=== PATIENT | male | born 1930 | race Caucasian/White ===

== ENCOUNTER 2016-04-11 08:15 | Outpatient (RCR) | payer MEDICARE, BC ==
[~2016-04-11 08:15] MED LIST: ASPIRIN 32325 MG/TAB PO; ASPIRIN E.C. 8181 MG PO; CARDI-OMEGA1000 MG PO; CHLORTHALIDONE25 MG PO; CLOBETASOL PROP0.055 TP; CLOBETASOL0.05% TP; COQ1060 MG PO; COZAAR50 MG PO; DELTA D3400 IU PO; DILTIAZEM120 MG PO; DOXYCYCLINE 10100 MG PO; EPA FISH OIL1000 MG PO; HCTZ12.5TAB PO; LIPITOR40 MG PO; LISINOPRIL10 MG PO; LISINOPRIL2.5 MG PO; LOPRESSOR 225 MG/TAB PO; LOPRESSOR50 MG PO; MEGACE 40MG40 MG/TAB PO; METFORMIN500 MG PO; MILK OF MA400 MG/51 PO; MULTIPLE VITAMI1 CAP PO; NORCO 325 MG-7.1 TAB PO; NORVASC 5MG5 MG/TAB PO; PEPCID 20MG TAB20 MG PO; PERCOCET 325 MG1 TA2 PO; PLAVIX 75MG TAB75 MG; PLAVIX 75MG TAB75 MG PO; PRAVACHOL 20MG20 MG PO; SUPER EPA 1201200 MG PO; TYLENOL 325MG325 MG PO; VITAMIN D 400400 IU PO; VITAMIN D1000 IU PO; VITAMIN D5000 IU PO; ZESTRIL 5MG5 MG PO; [UNRECOGNIZED DRUG - OTHER] PO
== END 2016-04-13 08:08 | disposition home or self-care (01) ==
LOC: WSPT 08:15
DX: M62.81 Muscle weakness (generalized) (principal)
CPT/HCPCS: G8984-GP; G8985-GP; G8986-GP

== ENCOUNTER 2016-04-30 09:30 | Outpatient (RCR) | payer MEDICARE, BC | END 2016-05-14 11:39 | disposition home or self-care (01) | LOC: WSOT 09:30 | DX: M62.81 Muscle weakness (generalized) (principal) | CPT/HCPCS: G8987-GO; G8988-GO; G8989-GO ==

== ENCOUNTER 2017-05-20 11:33 | Emergency (ER) | payer MEDICARE, BC ==
[~2017-05-20] VITALS: Ht 172.7 cm; Wt 65.9 kg
[2017-05-20 11:36] VITALS: TEMP 98.9
[2017-05-20 14:10] VITALS: BP 121/71
[2017-05-20] MEDS ORDERED: PEPCID 20MG TAB20 MG PO (14:18)
[2017-05-20] MEDS ORDERED: PRAVACHOL80 MG PO (14:18)
[2017-05-20] MEDS ORDERED: LOPRESSOR 225 MG/TAB PO (14:19)
[2017-05-20 14:45] LABS: BASO % 0.3 % (0.0-2.0); EOS % 0.1 % (0-4.0); GRAN # 9.5 (1.4-6.5); GRAN % 83.7 % (42.2-75.2); HEMATOCRIT 38.9 % (42.0-52.0); HEMOGLOBIN 13.3 g/dl (13.5-18.0); LYMPH # 0.6 (1.2-3.4); LYMPH % 5.1 % (20.0-51.0); MEAN CELL VOLUME 99 fl (80.0-100.0); MEAN CORPUSCULAR HEMOGLOBIN 34 pg (27.0-31.0); MEAN CORPUSCULAR HGB CONC 34 g/dl (33.0-37.0); MEAN PLATELET VOLUME 10.3 fl (7.4-10.4); MONO # 1.2 (0.1-0.6); MONO % 10.5 % (1.7-9.3); PLATELET COUNT 137 K/mm3 (130-400); RED BLOOD COUNT 3.92 M/mm3 (4.20-5.60); REDCELL DISTRIBUTION WIDTH-CV 13.5 % (11.5-14.5)
[2017-05-20 14:50] LABS: INR 1.2 (0.8-3.0); PROTHROMBIN TIME 13.4 SECONDS (9.7-12.8)
[2017-05-20 14:59] LABS: ALANINE AMINOTRANSFERASE 29 U/L (21-72); ALBUMIN 4.3 gm/dL (3.5-5.0); ALKALINE PHOSPHATASE 91 U/L (50-136); ANION GAP 18 mmol/L (7-16); AST,SGOT 26 U/L (15-37); BILIRUBIN,TOTAL 0.7 mg/dL (0.0-1.0); BLOOD UREA NITROGEN 20 mg/dL (9-20); CALCIUM 9.2 mg/dL (8.4-10.2); CARBON DIOXIDE 24 mmol/L (22-30); CHLORIDE 94 mmol/L (98-107); CREATININE, serum 1.28 mg/dL (0.66-1.25); GLUCOSE 152 mg/dL (74-106); POTASSIUM 3.9 mmol/L (3.4-5.0); SODIUM 135 mmol/L (137-145); TOTAL PROTEIN 7.6 gm/dL (6.4-8.2)
[2017-05-20] MEDS ORDERED: PLAVIX 75MG TAB75 MG PO (15:01)
[2017-05-20] MEDS ORDERED: COLACE 100100 MG/CAP PO (15:01)
[2017-05-20] MEDS ORDERED: EPA FISH OIL1 SGL PO (15:01)
[2017-05-20] MEDS ORDERED: ASPIRIN E.C. 8181 MG PO (15:01)
[2017-05-20] MEDS ORDERED: THE MEDICINE S200 M2 PO (15:02)
[2017-05-20] MEDS ORDERED: VITAMIN D 1001000 IU PO (15:03)
[2017-05-20] MEDS ORDERED: BREO IH (15:03)
[2017-05-20] MEDS ORDERED: [UNRECOGNIZED DRUG - OTHER] (15:04)
[2017-05-20 15:19] LABS: TROPONIN-I < 0.012 ng/mL (0.000-0.034)
[2017-05-20 16:34] LABS: COLLECTION METHOD CLEAN CATCH
[2017-05-20 16:41] LABS: PH 6 (5-8); SQUAMOUS EPITHELIAL None Seen /hpf; URINE APPEARANCE Clear; URINE BACTERIA None Seen /hpf; URINE BILIRUBIN Negative (NEGATIVE); URINE BLOOD 1+ (NEGATIVE); URINE COLOR Straw; URINE GLUCOSE Negative (NEGATIVE); URINE KETONE Negative (NEGATIVE); URINE LEUKOCYTE ESTERASE Negative (NEGATIVE); URINE NITRATE Negative (NEGATIVE); URINE PROTEIN(semi-quant) Negative (NEGATIVE); URINE UROBILINOGEN Negative (NEGATIVE)
[2017-05-20 17:10] VITALS: PULSE 97
== END 2017-05-20 17:22 | disposition home or self-care (01) ==
LOC: COL.ER 11:33
PROVIDERS: Emergency Medicine
DX: K21.9 Gastro-esophageal reflux disease without esophagitis (principal); I10 Essential (primary) hypertension; E78.5 Hyperlipidemia, unspecified; Z85.118 Personal history of other malignant neoplasm of bronchus and lung; Z95.1 Presence of aortocoronary bypass graft; Z90.79 Acquired absence of other genital organ(s); Z90.2 Acquired absence of lung [part of]; Z79.82 Long term (current) use of aspirin; Z79.01 Long term (current) use of anticoagulants; Z79.51 Long term (current) use of inhaled steroids; Z87.891 Personal history of nicotine dependence
CPT/HCPCS: J7030; Q9967

== ENCOUNTER 2019-12-28 10:24 | Inpatient (IN) | payer MEDICARE, BC ==
[2019-12-28] VITALS (155 sets, daily range): BP systolic 105–170; BP diastolic 41–99; PULSE 70–100; TEMP 68.1–98.3; O2SAT 83–100
[~2019-12-28] VITALS: Ht 172.7 cm; Wt 61.7 kg
[~2019-12-28 10:24] MED LIST changes: +BREO IH; +COLACE 100100 MG/CAP PO; +EPA FISH OIL1 SGL PO; +PRAVACHOL80 MG PO; +THE MEDICINE S200 M2 PO; +VITAMIN D 1001000 IU PO; +[UNRECOGNIZED DRUG - OTHER]
[2019-12-28 10:47] LABS: BASO % 0.5 % (0.0-2.0); EOS # 0.2 (0.0-0.7); EOS % 2.7 % (0-4.0); GRAN % 62.4 % (42.2-75.2); HEMATOCRIT 32.9 % (42.0-52.0); HEMOGLOBIN 10.2 g/dl (13.5-18.0); LYMPH # 1.7 (1.2-3.4); MEAN CELL VOLUME 89 fl (80.0-100.0); MEAN CORPUSCULAR HEMOGLOBIN 28 pg (27.0-31.0); MEAN CORPUSCULAR HGB CONC 31 g/dl (33.0-37.0); MEAN PLATELET VOLUME 10.1 fl (7.4-10.4); MONO # 1.1 (0.1-0.6); MONO % 13.3 % (1.7-9.3); PLATELET COUNT 198 K/mm3 (130-400); RED BLOOD COUNT 3.68 M/mm3 (4.20-5.60); REDCELL DISTRIBUTION WIDTH-CV 14.1 % (11.5-14.5)
[2019-12-28 10:51] LABS: INR 1.1 (0.8-3.0)
[2019-12-28 10:59] LABS: ALBUMIN 4.7 gm/dL (3.5-5.0); BILIRUBIN,TOTAL 0.6 mg/dL (0.0-1.0); CALCIUM 9.4 mg/dL (8.4-10.2); CREATININE, serum 1.27 (0.66-1.25); POTASSIUM 3.7 mmol/L (3.4-5.0); TOTAL PROTEIN 7.8 gm/dL (6.4-8.2)
[2019-12-28 11:10] LABS: PARTIAL THROMBOPLASTIN TIME 32.1 SECONDS (26.0-37.0)
[2019-12-28 11:11] LABS: TROPONIN-I 0.014 ng/mL (0.000-0.035)
--- NOTE | 2019-12-28 14:48 | NUR ---
SEE MEREBRYSON FOR ALL MEDICATION ADMINISTRATION TIMES, INTRA AND POST SEDATION ASSESSMENTS
--- NOTE | 2019-12-28 16:48 | NUR ---
RECEIVED REPORT FROM PEPE BAUTISTA IN TEACHING PASTOR. AWAITING ARRIVAL OF PT TO ICU 1.
--- NOTE | 2019-12-28 16:58 | NUR ---
PT ARRIVES TO ICU 1 PLACED ON BEDSIDE CONTINUOUS MONITOR. PT EDUCATED THAT HE STILL NEEDS TO LAY FLAT AT THIS TIME R/T SHEATH IN RT FEMORAL STILL IN PLACE AND TO NOT PUT PRESSURE ON LT WRIST AT THIS TIME R/T TR BAND IN PLACE, VERBALIZED UNDERSTANDING. NOTED 19ML IN TR BAND PER REPORT TO LT WRIST. URINAL PLACED TO ALLOW PT TO ATTEMPT TO VOID, SUCCESSFUL OF 250ML. CALL LIGHT WITHIN REACH. PEPE BAUTISTA FROM ACADEMIC INTERN AT BEDSIDE MONTIROIGN SHEATH AND ACT. PASSENGER SERVICE REPRESENTATIVE STATES ONCE PT'S SHEATH IS OUT AND IS STABLE CAN TRANSFER TO 307. PT MADE AWARE, VERBALIZED UNDERSTANDING. VSS. PT DENIES ANY CP OR SHOB AT THIS TIME. PT STATES "I FEEL GREAT."
--- NOTE | 2019-12-28 17:21 | NUR ---
ACT obtained and results 175. Will pull when ACT is [address] Anna.
--- NOTE | 2019-12-28 17:55 | NUR ---
ACT 171 at this time. Arterial sheath remains in place. Will recheck.
--- NOTE | 2019-12-28 18:21 | NUR ---
NOTED ORDER FOR COVID REQUEST AND RVP. RVP OBTAINED. LAB NOTIFIED. MORTGAGE PROFESSIONAL STATES THAT BECAUSE PT IS NO LONGER SYMPTOMATIC THAT THE COVID TEST WOULD NEED TO BE A SEND OUT AND TO CONTACT BLANCA RODRIGUEZ TO DISCUSS ABOUT POC AND IF REALLY SUSPECTING COVID. BLANCA RODRIGUEZ CALLED AND DISCUSSED SITUATION ABOUT LAB SWABS, PT'S CURRENT VS, AND PT DENYING ANY CP/SHOB SINCE ADMIT TO ICU AND PT STATES "I FEEL GREAT." NO S/S OF SHOB OR DISTRESS NOTED. BLANCA RODRIGUEZ STATES TO WAIT FOR RVP RESULTS AND IF NEGATIVE CAN DC COVID TEST AND PRECAUTIONS THAT PT DOES NOT SEEM SYMTPOMATIC AT THIS TIME. PEPE BAUTISTA FROM ARMHOLE BASTER JUMPBASTING AWARE OF SITUATION.
--- NOTE | 2019-12-28 19:10 | NUR ---
CARE TAKEN OVER BY RN FROM PEPE BAUTISTA IN BILINGUAL CALL CENTER REPRESENTATIVE AFTER SHEATH DCd. NO HEMATOMA OR PAIN NOTED TO RT RENAN SITE. 4X4 AND OCCLUSIVE DRESSING IN PLACE, NO BLEEDING NOTED AT THIS TIME. LT RADIAL SITE TR BAND, 3ML TAKEN OUT AT THIS TIME. NO BLEEDING NOTED. PT EDUCATED ON REMAINING FLAT TIME FOR THE NEXT 4-6 HOURS AND HOW WE WILL DO REVERSE TRENDELENBURG TO HELP HIM EAT SUPPER, VERBALIZED UNDERSTANDING.
--- NOTE | 2019-12-28 19:12 | NUR ---
ACT 154. Right femoral arterial line pulled at 1845 and manual pressure to site for 20 minutes. Hemostasis obtained and site is soft, non tender. Dry gauze dressing applied and covered with tegaderm dressing. Distal pulses +2, no hematoma. Pt instructed to keep head down and right left strait. Report to PEPE Prieto and site visualized.
--- NOTE | 2019-12-28 19:55 | NUR ---
PATIENT IS EATING, DENIES DISCOMFORT REVERSE SRAVANTHI,
--- NOTE | 2019-12-28 20:43 | NUR ---
PATIENT RESTING COMFORTABLE ON COT, GROIN BANDAGE CLEAN DRY, SECUREED WITH OCCULSIVE DRESSING, 9CC REMOVED FROM TR BAND LEFT WRIST, 3MLS REMOVED EVERY 30 MINUTES
--- NOTE | 2019-12-28 20:55 | NUR ---
REPORT CALLED TO ANNY CANTU AND TRANSPORTED TO ROOM 307
--- NOTE | 2019-12-28 21:10 | NUR ---
Removed 3 ml of air from his pressure band, makes total of 15 ml of air out, no changes in redness and no bleeding. Will keep monitoring the site untill next air removal. Post op vitals are recorded.
--- NOTE | 2019-12-28 21:20 | NUR ---
REMOVED ANOTHER 3 MLS FROM TR BAND TOTAL OF 12 MLS REMOVED NO DRAINAGE OR HEMATOMA FOUND. GROIN BANDAGE CLEAN AND DRY
--- NOTE | 2019-12-28 21:45 | NUR ---
Pt received from Alan ROTARY CUTTER. Pt denies N/V/D, tingling, numbness, pain at his time. Meds provided as per APR, tolerated well. Pt had diminished heart and lung sound, no edema and open wound over the body. Rt radial arm has a pressure band and has slight hematoma on the site. According to ROTARY CUTTER, Alan, total of 12 ml air has been removed. Rt groin procedure site looks CD&I, no edema. IV site is CD&I working without complications. Educated pt to lie flat until 0200, urinal on bedside. Pt is settled on his bed, call light is on reach, no further needs at this time, will keep monitoring.
--- NOTE | 2019-12-28 22:00 | NUR ---
Removed another 3 ml of fluid from the TR band and has no change on site, no bleeding, Will keep monitoring.
--- NOTE | 2019-12-28 22:35 | NUR ---
Removed another 3 ml of air from TR band, no chnage on procedure site, no bleeding. No further needs at this time, will keep monitoring.
--- NOTE | 2019-12-28 23:05 | NUR ---
Removed remaining air and left the band on place for few minutes to make sure it will not bleed, will check after few minutes and take out the band.
--- NOTE | 2019-12-28 23:14 | NUR ---
REMOVED THE TR BAND AND PLACED A BAND AID ON THE PROCEDURE SITE. RT GROIN PROCEDURE SITE LOOKS CD&I. PT IS SLEEPING, NO FURTHER NEEDS AT THIS TIME.
--- NOTE | 2019-12-29 00:14 | NUR ---
Pt received from Alan HELMINTHOLOGY TEACHER. Pt denies N/V/D, tingling, numbness, pain at this time. Meds provided as per APR, tolerated well. Pt had diminished heart and lung sound, no edema and open wound over the body. Rt radial arm has a pressure band and has slight bruise over the site. Rt groin procedure site looks CD&I, no edema. I/V site is CD&I working without complications. Educated pt to lie flat at least till 2 am, urinal on the bed side. Pt is settled on his bed, call light is on reach. No further needs at this time.
--- NOTE | 2019-12-29 01:52 | NUR ---
Remaining pressure removed and site looks bruised and red, applied bandage over the site, pt is sleeping, no further needs at this time.
[2019-12-29 03:30] VITALS: BP 106/54; PULSE 68; TEMP 98.3
--- NOTE | 2019-12-29 05:50 | NUR ---
Pt had an uneventful night, pt slept through out the night. No further needs at this time.
--- NOTE | 2019-12-29 07:30 | NUR ---
Pt alert resting in bed, assessment complete. Telemetry on, Pt denies chest pain and shortness of breath. R groin sheath site CDI CMS CKS to BLE, L wrist site CDI CMS CKS l wrist wnl. R forearm INT intact scant sangeous drainage noted to insertion site. Pt independent in his room, voices no acute concerns.
[2019-12-29 07:43] VITALS: BP 102/64; PULSE 82; TEMP 98.2
--- NOTE | 2019-12-29 09:08 | NUR ---
JOSE met with the patient to discuss discharge plan. The patient lives alone in [place] with his dog. He states that his son, Dennis (ph#[phone]), also lives in [place]. He reports independence with ADLs and does not have any DME. The patient's PCP is Dr. Quinn Caputo and he receives his medications at [facility]. He reports no difficulties obtaining his meds. The patient's DPOA-HC is in EMR. It designates his late and the alternate is his son, Dennis. The patient plans to return home upon discharge. JOSE discussed home health services and their benefits. The patient states that he is not interested in home health at this time. He states that he would only be interested in home health, if he were to get worse. JOSE then contacted and reviewed the above information with the patient's son, Dennis. Dennis states that he does not have any concerns about the patient returning home. He states that the patient does have some short term memory loss and that he would like to be here when the doctor combat systems operator goes over any new medications changes, limitations. JOSE to notify the patient's RN. JOSE to continue to follow as needed.
--- NOTE | 2019-12-29 09:57 | NUR ---
Initial visit; Patient thanked Candy Starch Mold Printer for looking in on him and offering God's blessings.
--- NOTE | 2019-12-29 10:49 | NUR ---
Pt assessment completed and charted. Medications administered per apr. Pt is A&O, independent in room, on room air, breathing is even and unlabored, pt on tele, LS cta, BS active X4, pulses strong bilaterally. Pt has RAC INT IV, drainage, no flushing well, hopefullly pt to DC today, otherwise will look into new IV site. Pt has rt groin site, gauze and tegaderm, CDI, no hematoma, soft to touch. Lt radial site, covered w/ bandaid, pulse strong, site CDI. Pt denies CP, dizziness, SOB, N/V/D, numbness or tingling, cough, general pain. Pt to have ECHO, then seen by hospitalist. Hopefully to DC this afternoon.
[2019-12-29] MEDS ORDERED: RANEXA 500MG T500 MG PO (11:16)
[2019-12-29] MEDS ORDERED: NITROSTAT0.4 MG/TAB SL (11:16)
[2019-12-29] MEDS ORDERED: PLAVIX 75MG TAB75 MG PO (11:16)
[2019-12-29] MEDS ORDERED: PEPCID 20MG TAB20 MG PO (11:17)
[2019-12-29 11:55] VITALS: BP 133/73; PULSE 77; TEMP 98.4
--- NOTE | 2019-12-29 12:35 | NUR ---
Pt discharge instructions discussed w/ patient and his son Dennis, all questions answered, they verbalized understanding. cheesemaking laborer discharge instructions discussed, verbalized understanding. LAC INT IV dc'd w/ cath tip intact and no issues. Pt escorted out via WC to ER entrance. No further needs.
== END 2019-12-29 12:36 | disposition home or self-care (01) | DRG 287 ==
LOC: COL.ER 10:24 → MEDICAL 13:13
PROVIDERS: Family Medicine; ADMIT Internal Medicine
PROC: 4A023N7 Measurement of Cardiac Sampling and Pressure, Left Heart, Percutaneous Approach (ICD-10-PCS; principal; 2019-12-28)
PROC: B2111ZZ Fluoroscopy of Multiple Coronary Arteries using Low Osmolar Contrast (ICD-10-PCS; 2019-12-28)
PROC: B2131ZZ Fluoroscopy of Multiple Coronary Artery Bypass Grafts using Low Osmolar Contrast (ICD-10-PCS; 2019-12-28)
DX: I25.110 Atherosclerotic heart disease of native coronary artery with unstable angina pectoris (principal); C34.90 Malignant neoplasm of unspecified part of unspecified bronchus or lung; D64.9 Anemia, unspecified; I10 Essential (primary) hypertension; I73.9 Peripheral vascular disease, unspecified; E78.5 Hyperlipidemia, unspecified; Z85.46 Personal history of malignant neoplasm of prostate; Z95.0 Presence of cardiac pacemaker; Z87.891 Personal history of nicotine dependence
CPT/HCPCS: 99223-AI; 99239; J1644; J2250; J3010

== ENCOUNTER 2020-02-04 10:25 | Observation (INO) | payer MEDICARE, BC ==
[~2020-02-04] VITALS: Ht 172.7 cm; Wt 51.9 kg
[~2020-02-04 10:25] MED LIST changes: +NITROSTAT0.4 MG/TAB SL; +RANEXA 500MG T500 MG PO
[2020-02-04 11:24] LABS: BASO # 0.1 (0.0-0.2); BASO % 0.5 % (0.0-2.0); EOS # 0.3 (0.0-0.7); EOS % 2.8 % (0-4.0); GRAN # 8.1 (1.4-6.5); GRAN % 81.6 % (42.2-75.2); LYMPH # 0.6 (1.2-3.4); MEAN CELL VOLUME 91 fl (80.0-100.0); MEAN CORPUSCULAR HGB CONC 30 g/dl (33.0-37.0); MEAN PLATELET VOLUME 9.8 fl (7.4-10.4); MONO # 0.9 (0.1-0.6); MONO % 8.6 % (1.7-9.3); PLATELET COUNT 280 K/mm3 (130-400); RED BLOOD COUNT 3.43 M/mm3 (4.20-5.60); REDCELL DISTRIBUTION WIDTH-CV 20.4 % (11.5-14.5)
[2020-02-04 11:34] LABS: ALBUMIN 3.9 gm/dL (3.5-5.0); BILIRUBIN,TOTAL 0.6 mg/dL (0.0-1.0); C-REACTIVE PROTEIN 1.4 mg/dL (0.0-0.9); CALCIUM 9.3 mg/dL (8.4-10.2); CREATININE, serum 1.53 (0.66-1.25); HEMATOCRIT 31.2 % (42.0-52.0); HEMOGLOBIN 9.5 g/dl (13.5-18.0); MEAN CORPUSCULAR HEMOGLOBIN 28 pg (27.0-31.0); POTASSIUM 4.2 mmol/L (3.4-5.0); TOTAL PROTEIN 7.6 gm/dL (6.4-8.2)
[2020-02-04 11:47] LABS: TROPONIN-I 0.066 ng/mL (0.000-0.035)
[2020-02-04 12:04] LABS: INR 1.2 (0.8-3.0); PROTHROMBIN TIME 13.2 SECONDS (9.7-12.8)
[2020-02-04] MEDS ORDERED: BREO ELLIPTA 21 EACH IH (13:17)
[2020-02-04] MEDS ORDERED: MEGACE 40MG40 MG/TAB PO (13:18)
[2020-02-04] MEDS ORDERED: NITRO-DUR0.3 MG/PAT TD (13:18)
--- NOTE | 2020-02-04 15:32 | NUR ---
Spoke with nurse at [facility] and med rec done at this time. They will also fax COVID test results as soon as they are able to.
[2020-02-04 15:46] VITALS: BP 132/73; PULSE 88; TEMP 98.5
--- NOTE | 2020-02-04 15:50 | NUR ---
Patient to room from ER via stretcher. Moves self from stretcher to bed. Denies pain at this time. When he has pain he says that it is in his chest, arms, and legs. Some bruising noted to right lower chest, patient not sure where it came from. Says that he had a bowel movement this morning and was excited about that because it was several days before he had one. Oriented to room. Water and soup provided.
[2020-02-04 15:54] LABS: COLLECTION METHOD CLEAN CATCH
[2020-02-04 16:00] LABS: BUDDING YEAST Present /hpf; MUCOUS Present /lpf; PH 6 (5-8); SQUAMOUS EPITHELIAL 0-2 /hpf; URINE APPEARANCE Cloudy; URINE BACTERIA Rare /hpf; URINE BILIRUBIN Negative (NEGATIVE); URINE BLOOD Negative (NEGATIVE); URINE COLOR Amber; URINE GLUCOSE Negative (NEGATIVE); URINE KETONE Trace (NEGATIVE); URINE LEUKOCYTE ESTERASE 1+ (NEGATIVE); URINE NITRATE Negative (NEGATIVE); URINE PROTEIN(semi-quant) 1+ (NEGATIVE); URINE RBC 20-50 /hpf; URINE UROBILINOGEN Negative (NEGATIVE)
--- NOTE | 2020-02-04 16:06 | NUR ---
Review consent for cardiac cath with the patient. Denies questions and signs consent. Will place in chart.
--- NOTE | 2020-02-04 18:04 | NUR ---
Dr. Steel notified of elevated troponin level. No new orders received at this time.
[2020-02-04 20:47] VITALS: BP 94/54; PULSE 88; TEMP 98.1
[2020-02-04 23:25] LABS: HEMATOCRIT 24.8 % (42.0-52.0); HEMOGLOBIN 7.9 g/dl (13.5-18.0); MEAN CELL VOLUME 88 fl (80.0-100.0); MEAN CORPUSCULAR HEMOGLOBIN 28 pg (27.0-31.0); MEAN CORPUSCULAR HGB CONC 32 g/dl (33.0-37.0); MEAN PLATELET VOLUME 9.6 fl (7.4-10.4); PLATELET COUNT 233 K/mm3 (130-400); RED BLOOD COUNT 2.82 M/mm3 (4.20-5.60); REDCELL DISTRIBUTION WIDTH-CV 20.2 % (11.5-14.5)
[2020-02-04 23:32] LABS: INR 1.2 (0.8-3.0); PROTHROMBIN TIME 13.1 SECONDS (9.7-12.8)
[2020-02-04 23:34] LABS: PARTIAL THROMBOPLASTIN TIME 48.2 SECONDS (26.0-37.0)
[2020-02-04 23:35] LABS: CALCIUM 8.8 mg/dL (8.4-10.2); CREATININE, serum 1.42 (0.66-1.25); POTASSIUM 4.2 mmol/L (3.4-5.0)
[2020-02-04 23:36] VITALS: BP 98/63; PULSE 95; TEMP 97.8
--- NOTE | 2020-02-05 01:45 | NUR ---
Patient pleasant, alert and oriented. Patient denies chest pain, SOB or dyspnea while at rest. Patient reported that he gets short of air and dyspnea upon movement or ambulating. Casillas catheter draining clear yellow urine. Heparing drip runningat 8.0 ml/hr via IV. IV to right AC area has no s/s of complications. Scheduled medications given per APR. Reviewed MD order for NPO starting midnight. Patient verbalized understanding. Call light within reach. Patient denies any needs at this time.
[2020-02-05 04:09] VITALS: BP 110/63; PULSE 84; TEMP 98.4
[2020-02-05 04:23] LABS: BASO # 0.1 (0.0-0.2); BASO % 0.6 % (0.0-2.0); EOS # 0.4 (0.0-0.7); EOS % 4.3 % (0-4.0); GRAN # 5.9 (1.4-6.5); GRAN % 69.7 % (42.2-75.2); LYMPH # 1.3 (1.2-3.4); LYMPH % 14.9 % (20.0-51.0); MEAN CELL VOLUME 91 fl (80.0-100.0); MEAN CORPUSCULAR HGB CONC 31 g/dl (33.0-37.0); MEAN PLATELET VOLUME 9.6 fl (7.4-10.4); MONO # 0.9 (0.1-0.6); MONO % 10.3 % (1.7-9.3); PLATELET COUNT 229 K/mm3 (130-400); RED BLOOD COUNT 2.96 M/mm3 (4.20-5.60); REDCELL DISTRIBUTION WIDTH-CV 20.4 % (11.5-14.5)
[2020-02-05 04:33] LABS: CALCIUM 8.8 mg/dL (8.4-10.2); CREATININE, serum 1.34 (0.66-1.25); POTASSIUM 4.1 mmol/L (3.4-5.0)
[2020-02-05 04:59] LABS: TROPONIN-I 0.075 ng/mL (0.000-0.035)
[2020-02-05 05:01] LABS: HEMATOCRIT 26.8 % (42.0-52.0); HEMOGLOBIN 8.2 g/dl (13.5-18.0); MEAN CORPUSCULAR HEMOGLOBIN 28 pg (27.0-31.0)
--- NOTE | 2020-02-05 06:04 | NUR ---
Patient slept well throughout the night. No c/o pain, discomfort, or SOB while at rest. NPO maintained from midnight for heart cath procedure today. Call light within reach. patient denies any need at this time.
--- NOTE | 2020-02-05 06:13 | NUR ---
Around 2100, patient's HepXa result was 0.16. Noted that patient's Heparin drip order was D/C'd in the computer on transfer from ER to medical floor. Spoke to Dr. Steel who said that the order should have been continued and to renew order. Patient was running at 6.5 ml/hr, and it was never stopped. Per protocol, increased Heparin drip by 1.5 ml/hr, new rate was 8 ml/hr. HepXa recheck scheduled for 0300. At 0500, result of 0.26 received, which is goal. No change in Heparin drip. Recheck HepXa at 1100.
--- NOTE | 2020-02-05 06:45 | NUR ---
bedside shift report received from PEPE Roldan
[2020-02-05 07:35] VITALS: BP 123/67; PULSE 87; TEMP 97.7
--- NOTE | 2020-02-05 08:30 | NUR ---
in bed and appears to be sleeping, resp quiet and easy
--- NOTE | 2020-02-05 09:20 | NUR ---
awakened and full assessment completed, see interventions for futher info, Dr Leon was in to see patient, patient denies pain or needs
--- NOTE | 2020-02-05 10:41 | NUR ---
JOSE met with the patient to discharge plan. The patient has been residing at [facility] in [facility] for a skilled stay. He could not recall how long he has been there. He states that he hopes to go back to [facility] upon discharge. The patient's PCP is Dr. Quinn Caputo and his DPOA-HC is in [facility], which designates his late and his son, Dennis (ph#[phone]). JOSE contacted the patient's son, Dennis, to discuss discharge. Dennis reports that the patient has been at [facility] around 3 1/2 weeks now. He states that [facility] informed him that the patient has a few more days at [facility] and then he has been talking to them about the patient transferring to another household there. Dennis reports that the plan is for the patient to return back to [facility] upon discharge. JOSE contacted and faxed updates to Nuvia at [facility]. Awaiting reponse on if [facility] can take the patient back.
--- NOTE | 2020-02-05 11:00 | NUR ---
Dr Keenan and care team in to see jean-claude
[2020-02-05 11:38] VITALS: BP 104/53; PULSE 84; TEMP 98.3
--- NOTE | 2020-02-05 12:00 | NUR ---
in bed and appears to be dozing, no grimacing or moaning or moving about in bed
--- NOTE | 2020-02-05 13:05 | NUR ---
Nuvia, at [facility], reports that they can accept the patient back and that they would require another COVID PCR test before taking back. JOSE notified the PA. A COVID test was ordered. Awaiting results. SW to continue to follow.
--- NOTE | 2020-02-05 13:38 | NUR ---
Dr Alvarez in to see patient, heart cath has been cancelled fo today, will continue on heparin drip, will provided AHA diet
--- NOTE | 2020-02-05 14:04 | NUR ---
dietitian in to visit with patient
--- NOTE | 2020-02-05 14:15 | NUR ---
had something to eat and tolerated well, denies needs at this time
--- NOTE | 2020-02-05 15:00 | NUR ---
physical therapy in to work with patient, assisted up and ambulated and into bathroom and voied
[2020-02-05 16:11] VITALS: BP 105/51; PULSE 98; TEMP 98.7
--- NOTE | 2020-02-05 17:35 | NUR ---
sitting up in bed eating chicken noodle soup are requested
--- NOTE | 2020-02-05 19:00 | NUR ---
Dr villalpando called to say he entered orders on the wrong patient and the transfer orders on this patinet were incorrect
--- NOTE | 2020-02-05 19:00 | NUR ---
shift report given to PEPE Senior and Yuli CANTU
[2020-02-05 19:39] VITALS: BP 111/44; PULSE 102; TEMP 98.1
--- NOTE | 2020-02-05 22:54 | NUR ---
Patient pleasant, alert and oriented. Patient was laying in bed and watching TV upon enter the room. Patient denies any pain or discomfort. Denies chest pain, SOB or dyspnea while at rest. Assisted patient to sit up on the edge of bed to take medications. Schedule medications given at this time per order. Patient took medications without difficulty. Patient start to have SOB for minimal movement. Encouraged patient to lay in bed and relax. HOB elevated 45 degree. Patient states breathing is easier while resting in bed. Casillas catheter emptied out at this time. Dark tea color urine out of 100ml. Casillas care provided. Call light within reach. Patient denies any need at this time.
[2020-02-05 23:58] VITALS: BP 110/58; PULSE 81; TEMP 98
[2020-02-06 04:11] VITALS: BP 109/62; PULSE 83; TEMP 97.6
--- NOTE | 2020-02-06 05:40 | NUR ---
Patient pulled off Tele strip in the middle of night due to itchiness to his skin. Tele strip re-applied after a while. No more itchiness reported. No c/o pain or discomfort throughout the shift. Call light within reach.
[2020-02-06 06:01] LABS: MEAN CELL VOLUME 91 fl (80.0-100.0); MEAN CORPUSCULAR HGB CONC 30 g/dl (33.0-37.0); MEAN PLATELET VOLUME 9.7 fl (7.4-10.4); PLATELET COUNT 253 K/mm3 (130-400); RED BLOOD COUNT 3.24 M/mm3 (4.20-5.60); REDCELL DISTRIBUTION WIDTH-CV 20.5 % (11.5-14.5)
[2020-02-06 06:03] LABS: HEMATOCRIT 29.4 % (42.0-52.0); HEMOGLOBIN 8.9 g/dl (13.5-18.0); MEAN CORPUSCULAR HEMOGLOBIN 27 pg (27.0-31.0)
[2020-02-06 06:08] LABS: CALCIUM 8.9 mg/dL (8.4-10.2); CREATININE, serum 1.28 (0.66-1.25)
[2020-02-06 07:36] VITALS: BP 113/58; PULSE 81; TEMP 97.6
--- NOTE | 2020-02-06 08:30 | NUR ---
Patient resting in bed, easily awakened with verbal command. A&Ox4. VSS. IV CDI, heparin infusing. Denies pain and discomfort. Is hoping to go home. Nursing staff encouraging patient to increase PO intake. Patient verbalized an understanding. No further needs expressed from the patient. Call light within reach. Bed alarm on
[2020-02-06 11:31] VITALS: BP 126/62; PULSE 90; TEMP 97.4
--- NOTE | 2020-02-06 15:34 | NUR ---
SW informed by charge nurse that patient would not be DCing home on this day 02/06/20 per physician. SW will continue to follow
[2020-02-06 16:37] VITALS: BP 104/60; PULSE 100; TEMP 97.4
--- NOTE | 2020-02-06 17:29 | NUR ---
Patient spent the day resting in bed most of the shift. Patient wanted to take a shower, nursing staff assisted the patient with 1 assist to the bathroom where the patient had to sit down and stated that his chest hurt and that he needed to go back to bed. Patient ambulated with 1 assist back to bed and repositioned for comfort. Patient worked with PT and tolerated well. Patient has been resting in bed after trying to take a shower. A&Ox3. VSS. IV CDI, fluids infusing. Nursing staff encouraging patient to increase PO intake. No further needs expressed from the patient. Call light within reach. Bed alarm on
[2020-02-06 19:13] VITALS: BP 99/51; PULSE 94; TEMP 98.4
--- NOTE | 2020-02-06 20:00 | NUR ---
SEE HEP XA RESULT. NO CHANGE IN DOSING. CHECK LAB IN 6HRS. PT RESTING IN BED. VERY PLEASANT AND COPPERATIVE. DENIES ANY PAIN. SEE COMPLETED ASSESSMENT.
[2020-02-06 23:17] VITALS: BP 104/55; PULSE 86; TEMP 98.4
[2020-02-07 03:19] VITALS: BP 92/47; PULSE 86; TEMP 98.2
--- NOTE | 2020-02-07 06:36 | NUR ---
LAB HERE FOR HEPXA LEVEL. HILL DRAINING SMALL AMTS OF PALE CREAM MUCOUS URINE RETURN. REVIEWED UAC. WILL REPORT TO DAYSHIFT.
[2020-02-07 07:12] LABS: CALCIUM 8.6 mg/dL (8.4-10.2); CREATININE, serum 1.19 (0.66-1.25)
[2020-02-07 07:14] LABS: BASO % 0.5 % (0.0-2.0); EOS # 0.4 (0.0-0.7); EOS % 4.4 % (0-4.0); GRAN # 5.5 (1.4-6.5); GRAN % 65.5 % (42.2-75.2); LYMPH # 1.4 (1.2-3.4); LYMPH % 17.3 % (20.0-51.0); MEAN CELL VOLUME 88 fl (80.0-100.0); MEAN CORPUSCULAR HGB CONC 32 g/dl (33.0-37.0); MEAN PLATELET VOLUME 9.8 fl (7.4-10.4); MONO % 11.9 % (1.7-9.3); PLATELET COUNT 233 K/mm3 (130-400); RED BLOOD COUNT 2.88 M/mm3 (4.20-5.60); REDCELL DISTRIBUTION WIDTH-CV 20.4 % (11.5-14.5)
[2020-02-07 07:15] LABS: HEMATOCRIT 25.4 % (42.0-52.0); HEMOGLOBIN 8.2 g/dl (13.5-18.0); MEAN CORPUSCULAR HEMOGLOBIN 28 pg (27.0-31.0)
[2020-02-07 08:03] VITALS: BP 94/49; PULSE 91; TEMP 98.1
[2020-02-07 11:20] VITALS: BP 102/56; PULSE 100; TEMP 97.6
[2020-02-07 16:12] VITALS: BP 102/44; PULSE 82; TEMP 98.2
--- NOTE | 2020-02-07 17:19 | NUR ---
Pt assessment completed and charted. Medications administered per apr. Pt alert, partially oriented. Pt denies dizziness, chest pain, N/V/D. Pt worked w/ therapy this morning, stated he was doing better than yesterday and ambulating better. Pt stated chest pain had improved from yesterday. Pt on hep gtt, running at 7ml/hr this morning, increased to 9.5ml/hr after hep xa result of 0.13, received bolus of 1000 as well. Next hep xa resulted at 0.40, decreased rate to 8.5 ml/hr. 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 Pt stated he was having some discomfort w/ the siegel as well. This nurse attempted to irrigate siegel, unsuccessful. New order to change out siegel. Difficulty removing siegel, had to deflate/inflate balloon multiple times, there was debris around catheter when pulled out. New 18F siegel inserted, draining cloudy jonny urine. Pt has RAC IV, redressed, was leaking some this morning. No further needs at this time. Call light within reach.
--- NOTE | 2020-02-07 19:00 | NUR ---
REPORT RCVD FROM PEPE SIDDIQI. PT RESTING IN BED AT THIS TIME. DENIES ANY NEEDS AT THIS TIME. ASSESSMENT COMPLETED. HEPARIN DRIP STILL RUNNING AT 8.5. NO FURTHER CONCERS. CALL LIGHT WITHIN REACH.
[2020-02-07 21:04] VITALS: BP 90/54; PULSE 90; TEMP 98.8
--- NOTE | 2020-02-07 23:15 | NUR ---
report received from PEPE Fontanez
[2020-02-08] VITALS (14 sets, daily range): BP systolic 88–1311; BP diastolic 46–65; PULSE 71–93; TEMP 97.4–99.1
--- NOTE | 2020-02-08 00:15 | NUR ---
in bed and appears to be sleeping, eyes closed, resp quiet and easy, Heparin infusing at 8.5ml/hr
--- NOTE | 2020-02-08 02:15 | NUR ---
entered room and he has removed his gown and telemetry, stated he was getting everything together, is alert and oriented to self and place, gown and telemetry back on and reminded him he needs to leave these on and not to touch his IV site, verbalizes understanding but unsure if he will leave all alone, heart rate strong and regular, lungs CTA, abdomen soft and non distended, bowel sounds present in 4 quads, peripheral pulses present in 4 extremities, heparin infusing in right antecubital at 8.5ml/hr, siegel cath pateitn draining yellow cloudy urine in tubing, lights off and encouraged to go back to sleep
--- NOTE | 2020-02-08 03:00 | NUR ---
remains in bed and appears to be sleeping
--- NOTE | 2020-02-08 05:20 | NUR ---
appears to be sleeping, resp quiet and easy
[2020-02-08 06:42] LABS: MEAN CELL VOLUME 89 fl (80.0-100.0); MEAN CORPUSCULAR HGB CONC 31 g/dl (33.0-37.0); MEAN PLATELET VOLUME 9.8 fl (7.4-10.4); PLATELET COUNT 224 K/mm3 (130-400); RED BLOOD COUNT 2.99 M/mm3 (4.20-5.60); REDCELL DISTRIBUTION WIDTH-CV 20.4 % (11.5-14.5)
[2020-02-08 06:46] LABS: CALCIUM 8.7 mg/dL (8.4-10.2); CREATININE, serum 1.18 (0.66-1.25); HEMATOCRIT 26.6 % (42.0-52.0); HEMOGLOBIN 8.2 g/dl (13.5-18.0); MEAN CORPUSCULAR HEMOGLOBIN 27 pg (27.0-31.0); POTASSIUM 4.5 mmol/L (3.4-5.0)
--- NOTE | 2020-02-08 06:49 | NUR ---
bedside shift report given to PEPE Chavira
--- NOTE | 2020-02-08 08:59 | NUR ---
Pt assessment completed and charted, pt laying in bed, resting. Hept gtt to RAC running at 8.5ml/hr, w/o issue. Pt on room air, denies dizziness, chest pain, SOA at this time. Casillas to dd, draining cloudy jonny urine. Pt NPO for heart cath procedure this morning. Consent signed and on chart. No further needs expressed at this time.
--- NOTE | 2020-02-08 10:22 | NUR ---
Pt down for heart cath procedure at this time.
--- NOTE | 2020-02-08 10:24 | NUR ---
SEE MERGE FOR ALL MEDICATION ADMINISTRATION TIMES, INTRA AND POST SEDATION ASSESSMENTS
--- NOTE | 2020-02-08 12:06 | NUR ---
Pt back from heart cath procedure at this time, flat time/bedrest started. pt verbalized understanding. Pt has Lt groin site, covered w/ gauze and tegaderm, soft to touch, CDI. Manual compression was held after procedure per RN from cardiac cath technician, no seal. Pulses strong bilaterally, VSS. Pt denies pain at this time. Will continue to monitor.
--- NOTE | 2020-02-08 12:46 | NUR ---
The patient is to have a heart [facility] today[facility] within [facility]. It's been 72 hours since the patient's last test. JOSE notified the hospitalist. JOSE to fax updates to [facility] and will continue to follow.
--- NOTE | 2020-02-08 14:44 | NUR ---
Pt laying in bed, has been sleeping since arriving back from general laborer. VSS. Lt groin site, CDI, soft touch, no hematoma noted. Pulses palpable bilaterally. Pt still on bedrest.
--- NOTE | 2020-02-08 16:58 | NUR ---
Pt laying in bed, sleepy since heart cath today. VSS, Lt groin site, CDI. No hematoma noted, soft to touch, pt denies pain. This nurse talked to pt son again regarding heart cath procedure, given same update. Son would like call from regarding what was done in procedure and "why no interventions were done".
--- NOTE | 2020-02-08 17:59 | NUR ---
Pt sitting in bed, just finished dinner, requesting cup of coffee, new pot started.
--- NOTE | 2020-02-08 20:50 | NUR ---
Resting in bed. Assessment complete. Lungs clear. Heart sounds normal. Bowels active x4. Pulses present throughout. No edema noted. INT right AC leaking. Started by house supervisior in left forearm. Denies pain. siegel to dependent drainage. Left femoral site CDI-no hematoma present. Denies needs. Call light in reach.
[2020-02-09] VITALS (8 sets, daily range): BP systolic 103–140; BP diastolic 51–85; PULSE 78–96; TEMP 97.5–98.7
--- NOTE | 2020-02-09 00:11 | NUR ---
Resting in bed. Left femoral site CDI. No hematoma. Denies needs. Call light in reach.
--- NOTE | 2020-02-09 04:36 | NUR ---
Resting in bed. Denies needs. Call eva blake.
--- NOTE | 2020-02-09 06:19 | NUR ---
Patient had uneventful night. Left femoral site remains CDI. Denies needs this Am. Call light in reach.
--- NOTE | 2020-02-09 07:03 | NUR ---
Report given to PEPE Webb
--- NOTE | 2020-02-09 07:04 | NUR ---
Report given to PEPE Maravilla
--- NOTE | 2020-02-09 10:13 | NUR ---
The patient is to tentatively d/c today, 02/08, back to [facility], pending his COVID results. JOSE notified and faxed updates to Nuvia at [facility]. JOSE contacted and updated the patient's son, Dennis.
--- NOTE | 2020-02-09 15:01 | NUR ---
Pt assessment completed and charted. Medications administered per apr. Pt laying in bed, on room air, breathing even and unlabored. Pt denies chest pain, dizziness, N/V/D, SOB. Pt has LFA IV that flushes well. Casillas to dd draining jonny urine, appears clearer than yesterday, improved over two days. Pt denies needs at this time. Covid PCR came back positive late this morning, around 1130, pt placed on droplet/contact precautions. SW working w/ marilyn to see if pt can still DC today, pt cleared by cardio and hospitalist team.
--- NOTE | 2020-02-09 15:53 | NUR ---
The patient's COVID results came back positive. JOSE notified and faxed the results to Nuvia at [facility]. Nuvia reports that they are able to take the patient back, but would not be able to provide transportation for him until tomorrow. JOSE contacted and updated the patient's son, Dennis. eDnnis is still agreeable with the patient returning back to [facility]. JOSE to continue to follow.
--- NOTE | 2020-02-09 15:58 | NUR ---
Pt unable to discharge today to [facility], will possibly DC tomorrow. Pt moved to room 319 for isolation precautions.
--- NOTE | 2020-02-09 18:10 | NUR ---
Spoke with Dennis, pt son, updated on POC. All questions answered, no further needs.
[2020-02-10 04:00] VITALS: BP 101/54; PULSE 76; TEMP 98
--- NOTE | 2020-02-10 06:32 | NUR ---
PT HAD UNEVENTFUL NIGHT. PT DID NOT GET MUCH SLEEP. BUT REMAINED STABLE THROUGHOUT THE NIGHT. NO FURTHER CONCERNS. WILL REPORT TO DAY NURSE.
[2020-02-10] MEDS ORDERED: RANEXA1000 MG PO (08:00)
[2020-02-10] MEDS ORDERED: TOPROL XL 25MG25 MG PO (08:01)
[2020-02-10 08:09] VITALS: BP 128/66; PULSE 76; TEMP 98.5
[2020-02-10] MEDS ORDERED: OMNICEF 300MG300 MG PO (09:41)
--- NOTE | 2020-02-10 10:08 | NUR ---
Nuvia, at [facility], reports that they can take the patient back today. JOSE notified the clinical team. The patient is to discharge today, 02/09, back to [facility] for a skilled stay. Transportation was scheduled at 1130, via [facility]. JOSE informed the patient's RN and the patient's son, Dennis, over the phone. They were both agreeable to the time. No additional needs at this time.
--- NOTE | 2020-02-10 10:33 | NUR ---
PT RESTING IN BED AT BEDSIDE SHIFT REPORT. PT DENIED PAIN AT TIME OF ASSESS BUT STATED HE WAS HAVING CHEST PAIN WHILE UP WITH THERAPY. REPORTS FEELING CONSTIPATED SO COLACE AND MIRALAX GIVEN THIS AM. PT'S BP'S WERE UP THIS AM SO NITROGLYCERIN GIVEN. STAT LOCK CHANGED FOR CHRONIC HILL BECAUSE IT WAS NOT ATTACHED. URINE DRAINAGE LOOKS CLEAR AND YELLOW. PT DID REPORT PAIN WHILE FLUSHING IV THIS AM. PT IS DISCHARGING BACK TO [facility] AT 1130. WILL REMOVE IV.
--- NOTE | 2020-02-10 10:46 | NUR ---
Chaplain romero for patient, outside patient's door
--- NOTE | 2020-02-10 12:44 | NUR ---
THIS NURSE ASSISTED GETTING PT READY FOR TRANSFER BACK TO [facility]. IV IN LEFT FORARME DISCONTINUED AND TELE MONITOR REMOVED. PT DRESSED AND TOILETED.
[2020-02-14] MEDS ORDERED: DECADRON6 MG PO (17:57)
== END 2020-02-10 12:00 | disposition home or self-care (01) ==
LOC: COL.ER 10:25 → MEDICAL 12:26 → EDBEDREQ 14:35 → MEDICAL 18:43
PROVIDERS: Family Medicine; Internal Medicine; Internal Medicine Interventional Cardiology; Nurse Practitioner; Physician Assistant; Student in an Organized Health Care Education/Training Program; ADMIT Hospitalist
DX: R07.89 Other chest pain (principal); R06.09 Other forms of dyspnea; I25.110 Atherosclerotic heart disease of native coronary artery with unstable angina pectoris; R62.51 Failure to thrive (child); N39.0 Urinary tract infection, site not specified; E87.1 Hypo-osmolality and hyponatremia; D64.9 Anemia, unspecified; N18.30 Chronic kidney disease, stage 3 unspecified; I73.9 Peripheral vascular disease, unspecified; I95.9 Hypotension, unspecified; E78.5 Hyperlipidemia, unspecified; C34.90 Malignant neoplasm of unspecified part of unspecified bronchus or lung; K21.9 Gastro-esophageal reflux disease without esophagitis; E43 Unspecified severe protein-calorie malnutrition; R63.4 Abnormal weight loss; I08.3 Combined rheumatic disorders of mitral, aortic and tricuspid valves; Z20.828 Contact with and (suspected) exposure to other viral communicable diseases; Z85.46 Personal history of malignant neoplasm of prostate; Z90.79 Acquired absence of other genital organ(s); Z88.8 Allergy status to other drugs, medicaments and biological substances
CPT/HCPCS: OP; 99232-AI; G0378; J0696; J1644; J1650; J3010; J7030; Q9967

== ENCOUNTER 2020-02-16 16:27 | Observation (INO) | payer MEDICARE, BC ==
[~2020-02-16] VITALS: Ht 172.7 cm; Wt 57.5 kg
[2020-02-16] VITALS (57 sets, daily range): BP systolic 15–151; BP diastolic 66–94; PULSE 76–85; TEMP 97.2–97.6; O2SAT 67–100
[~2020-02-16 16:27] MED LIST changes: +BREO ELLIPTA 21 EACH IH; +DECADRON6 MG PO; +NITRO-DUR0.3 MG/PAT TD; +OMNICEF 300MG300 MG PO; +RANEXA1000 MG PO; +TOPROL XL 25MG25 MG PO
[2020-02-16] MEDS ORDERED: LOVENOX 3030 MG/0.3 SQ (17:54)
[2020-02-16] MEDS ORDERED: GENTLE LAXATIVE10 MG RC (18:03)
[2020-02-16] MEDS ORDERED: TYLENOL SU650 MG/SUP RC (18:17)
[2020-02-16] MEDS ORDERED: ANTI-DIARRHEAL2 MG PO (18:19)
[2020-02-16] MEDS ORDERED: GOOD NEIGH1200 MG/15 (18:20)
[2020-02-16] MEDS ORDERED: ALUM-MAG HYDROX30 ML PO (18:23)
[2020-02-16] MEDS ORDERED: DEBROX OT (18:24)
--- NOTE | 2020-02-16 19:22 | NUR ---
PT ARRIVED FROM [facility]. ASSESSMENT COMPELTED. PT CURRENTLY STABLE. THERE ARE NO CONCERNS AT THIS TIME. REPORT GIVEN TO PEPE FERRER.
--- NOTE | 2020-02-16 19:35 | NUR ---
Received report from Estefany. Report given that patient doesn't have an IV yet. Prepared an IV materials and his night medicines when Nereyda DAVIS called saying the patient was found on the floor and had an unwitnessed fall. Nadeen CANTU already went inside to patient's room. Upon arrival on his room, patient had a bleeding on his right elbow. Small skin tear was noted. Gait belt placed and we put patient back to bed. Vital signs taken, his SPO2 was at 80's since his nasal cannula was pulled out when he fell. Put patient on O2 at 3lpm via NC and his SPO2 went up to 96%. Patient was wearing yellow gown but bed alarm was not on. Asked patient if he knows his name and birthday and he was able to answer them but he doesn't know where he was right now. Tried to insert an IV but failed. Nadeen CANTU tried to insert an IV as well but failed. Will call senior data warehouse architect to try to insert an IV.
--- NOTE | 2020-02-16 20:05 | NUR ---
Sol DAVID was at the nurses's station. Informed her that the patient just had an unwitnessed fall and he had a skin tear on his right elbow. We are not sure if he hit his head. Sol put an order to have a Head CT scan and ABG.
--- NOTE | 2020-02-16 20:34 | NUR ---
Night medicines given to patient. Crushed pills and mixed it with apple sauce. [facility]visor in circuit testing went in to try IV insertion but she cannot find a vein. Will try to insert an IV with G24.
[2020-02-16 20:54] LABS: COLLECTION METHOD IN
[2020-02-16 21:00] LABS: BUDDING YEAST Present /hpf; MUCOUS Present /lpf; PH 5 (5-8); SQUAMOUS EPITHELIAL 0-2 /hpf; URINE APPEARANCE Cloudy; URINE BACTERIA Rare /hpf; URINE BILIRUBIN Negative (NEGATIVE); URINE BLOOD Negative (NEGATIVE); URINE CALCIUM OXALATE CRYSTAL Present /hpf; URINE COLOR Amber; URINE GLUCOSE Negative (NEGATIVE); URINE KETONE Trace (NEGATIVE); URINE LEUKOCYTE ESTERASE 3+ (NEGATIVE); URINE NITRATE Negative (NEGATIVE); URINE PROTEIN(semi-quant) 2+ (NEGATIVE); URINE RBC 20-50 /hpf; URINE UROBILINOGEN Negative (NEGATIVE)
--- NOTE | 2020-02-16 21:10 | NUR ---
Called back patient's son Dennis to update him regarding patient's condition. Informed him that patient just had a fall incident and had a skin tear on his elbow. Informed him as well that we don't know if the patient hit his head during his fall so the hospitalist ordered a CT scan of the head. Updated him that as of now we don't have an IV access yet since patient is a hard stick and antibiotics were not given yet but the household refrigeration mechanic was already trying to insert. Son Dennis was aware that patient is a hard stick. Informed him as well that we put a baby monitor inside his room, put the siderails up and put the bed alarm on. Called lab to ask them if they can draw lab works for the patient since he's a hard stick and we tried couple times already. Lab said they will send someone in.
--- NOTE | 2020-02-16 21:38 | NUR ---
RT and lab was inside the patient's room drawing ABG and lab works when they called saying patient just vomit and they need suction set. Upon entering his room, patient was in a sitting position in the bed. Patient had brownish vomit. He already stopped vomiting. Suction was on standby. Lab was able to get blood for his lab works and blood culture.
[2020-02-16 21:51] LABS: BASO % 0.1 % (0.0-2.0); GRAN # 14.6 (1.4-6.5); HEMOGLOBIN 7.9 g/dl (13.5-18.0); LYMPH # 0.7 (1.2-3.4); LYMPH % 4.2 % (20.0-51.0); MEAN CELL VOLUME 86 fl (80.0-100.0); MEAN CORPUSCULAR HEMOGLOBIN 27 pg (27.0-31.0); MEAN CORPUSCULAR HGB CONC 31 g/dl (33.0-37.0); MEAN PLATELET VOLUME 9.8 fl (7.4-10.4); MONO # 1.2 (0.1-0.6); MONO % 7.4 % (1.7-9.3); PLATELET COUNT 350 K/mm3 (130-400); RED BLOOD COUNT 2.95 M/mm3 (4.20-5.60); REDCELL DISTRIBUTION WIDTH-CV 19.4 % (11.5-14.5)
[2020-02-16 21:52] LABS: HEMATOCRIT 25.5 % (42.0-52.0)
[2020-02-16 22:06] LABS: ALBUMIN 3.1 gm/dL (3.5-5.0); BILIRUBIN,TOTAL 0.4 mg/dL (0.0-1.0); CALCIUM 8.8 mg/dL (8.4-10.2); CREATININE, serum 1.21 (0.66-1.25); POTASSIUM 4.9 mmol/L (3.4-5.0); TOTAL PROTEIN 6.4 gm/dL (6.4-8.2)
[2020-02-16 22:30] LABS: INR 1.2 (0.8-3.0); PROTHROMBIN TIME 13.3 SECONDS (9.7-12.8)
--- NOTE | 2020-02-16 22:56 | NUR ---
Patient's nurse requested this nurse to check on patient to see how he was doing. This nurse in patient's room at 2210 to check on patient. Patient noted to have arm and leg tremors that was not noted before. Patient's oxygen level was 74% on oxygen at 5 L/min via NC. Increased oxygen level to 15 L/min, and called RT. RT stated that ABG results were critical. Told to call Sol and update her on patient's ABG. Changed patient to oxymask due to mouth breathing. SPO2 85% on 15 L/min. Updated housekeeper/laundry assistant, and she requested that Sol be asked if IO could be placed due to difficulty placing periphreal line. Called Sol back at 2219. Sol had ordered Airvo. When asked about IO, BACTERIOLOGIST FOOD stated she wanted to transfer patient to ICU and have central line placed. Called Turn Down Worker and received room. At 2234, patient taken to CT as requested by Sol. Patient on oxygen at 25 L/min on oxygen tank during transfer. SPO2 remained 83-87%. After CT, patient taken and arrived at ICU at 2256.
--- NOTE | 2020-02-16 23:11 | NUR ---
Vancomycin Initial Dosing Pharmacy Note Ordering provider: Kj Dial MD 89 yo M Indication: PNA (7 days) goal: 15-20 Hx: no vanco dosing hx identified, pt with previous hx of COVID (+) on 02/08/20 and was hospitalized here and discharged [facility] to [facility] ago BMI: 19.3 Wt: 57.5 kg SCr: 1.21 estCrCl ~34 ML/MIN t 1/2 ~ 21h Tmax: 97.6 / RR: 21 / O2sat 93% on 2 L WBC: 16.7 LA: 4.5 Micro pending CXR reporting interval development of RS PNA Pt loaded with vanco 1.25 gm (~21 mg/kg). Will then start a maintenance regimen of 750mg q24h. Would recommend obtaining a MRSA nasal swab to identify if de-escalation can occur. WILL MONITOR RENAL FUNCTION AND MICRO FOR NEED TO ADJUST THERAPY. THANK YOU FOR THIS DOSING CONSULT!
[2020-02-16 23:14] LABS: TROPONIN-I 0.162 ng/mL (0.000-0.035)
--- NOTE | 2020-02-17 00:30 | NUR ---
Patient arrived to ICU room 5 via medical bed at approximately 2256. Patient transferred to ICU bed with 3X assist. JOANN Horton, at the bedside. Patient arrives receiving 15L via oxymask with oxygen saturation mid-high 80s. Patient placed on AirVo, receiving 60L 92% FiO2. Patient's oxygen saturation quickly improved to low-mid 90s. quality supervisor, Cherrie, started a 24g peripheral IV in the patient's right wrist area. Zofran 4mg administered IV at approximately 2315. Sol contacted patient's son, Dennis, at 2322. Upon arrival, patient was obtunded and unable to follow verbal commands. Within 20-30 minutes of arrival, patient was more alert although still lethargic. He followed verbal commands and eyes were able to track movements. Speech was garbled; patient unable to clearly articulate orientation but answered yes/no questions appropriately when asked. By 2357, a right subclavian triple lumen central line was placed and a chest xray was obtained to confirm placement. Dr. Hernandez noted line to be in appropriate position. During chest xray, this RN noted that patient was desatting to the 80s, however, the waveform was poor. At 0002, with this RN and JOANN Horton, at the bedside, the patient experienced a tonic-clonic seizure that lasted 2-5 seconds. Ativan ordered. Oxygen saturation noted to be 60-70% at this time. Per Sol's direction, held ativan due to patient's HR rapidly beginning to decrease. Patient taken off AirVo and bagged. BP 50/37 with no improvement in oxygen saturation. RT notified at 0005. Sol again contacted sonDennis, at 0006. During this conversation, the son decided to withdraw agressive care measures. Patient placed on comfort care. Ativan administered at 0007; morphine administered at 0010. Idioventricular rhythm in 30s with ST elevation noted at 0015. Patient absent of pulse and respirations at 0016. Sol notified sonDennis, at 0020.
--- NOTE | 2020-02-17 00:44 | NUR ---
Contacted [facility] and spoke with Saeed. Patient is not a candidate for donation at this time due to Covid-19. Referral #[id number]
[2020-02-17 01:50] LABS: ARTERIAL BLD GAS O2 SATURATION 91.9 % (92-100); ARTERIAL BLOOD GAS BASE EXCESS -2.6 (-2-2); ARTERIAL BLOOD GAS HCO3 20.3 meq/L (22-26); ARTERIAL BLOOD GAS PCO2 28.3 mmHg (35-45); ARTERIAL BLOOD GAS PO2 67.6 mmHg (80-100); ARTERIAL BLOOD GAS pH 7.47 (7.35-7.45)
--- NOTE | 2020-02-17 01:53 | NUR ---
ABG THAT IS IN CHART 02/17/2020 OVIDIO AT 0000, RECV AT 0141, THE DATES AND TIME ARE 01/17/2020 OVIDIO AT 2300, RECV AT 2304. ORDER WAS ENTERED AFTER MIDNIGHT AND AFTER PT SO SYSTEM ERROR ON TIMES
--- NOTE | 2020-02-17 02:13 | NUR ---
All lines, tubes, and monitoring equipment removed. Patient sent with [facility]. Belongings sent with patient.
== END 2020-02-17 02:14 | disposition expired ==
LOC: MEDICAL 16:27 → ICU 22:53
PROVIDERS: Internal Medicine Pulmonary Disease; Nurse Practitioner Family; Student in an Organized Health Care Education/Training Program; ADMIT Hospitalist
DX: I25.110 Atherosclerotic heart disease of native coronary artery with unstable angina pectoris (principal); I95.9 Hypotension, unspecified; I13.0 Hypertensive heart and chronic kidney disease with heart failure and stage 1 through stage 4 chronic kidney disease, or unspecified chronic kidney disease; I25.2 Old myocardial infarction; E78.5 Hyperlipidemia, unspecified; I50.32 Chronic diastolic (congestive) heart failure; I73.9 Peripheral vascular disease, unspecified; G40.909 Epilepsy, unspecified, not intractable, without status epilepticus; K21.9 Gastro-esophageal reflux disease without esophagitis; E87.1 Hypo-osmolality and hyponatremia; E87.8 Other disorders of electrolyte and fluid balance, not elsewhere classified; K59.00 Constipation, unspecified; J18.1 Lobar pneumonia, unspecified organism; N18.30 Chronic kidney disease, stage 3 unspecified; D63.1 Anemia in chronic kidney disease; Z95.1 Presence of aortocoronary bypass graft; Z20.828 Contact with and (suspected) exposure to other viral communicable diseases; Z85.46 Personal history of malignant neoplasm of prostate; Z90.79 Acquired absence of other genital organ(s); Z85.118 Personal history of other malignant neoplasm of bronchus and lung; Z79.82 Long term (current) use of aspirin; Z79.52 Long term (current) use of systemic steroids; Z79.02 Long term (current) use of antithrombotics/antiplatelets
CPT/HCPCS: 99223-AI; 99239; G0378; J2060; J2270; J2405; J2543; J3370; J7050